=== PATIENT | male | born 1965 | race Caucasian/White ===

== ENCOUNTER 2018-08-22 09:11 | Emergency (ER) | payer SELFPAY ==
[2018-08-22] MEDS ORDERED: Ondansetron 4 MG/2 ML SDV IVPUSH ONE (09:50)
[2018-08-22] MEDS ORDERED: Labetalol 100 MG/20 ML MDV IVPUSH ONE (09:51)
[2018-08-22] MEDS ORDERED: Famotidine 20 MG/2 ML SDV IVPUSH ONE (10:13)
[2018-08-22] MEDS ORDERED: Promethazine 25 MG/ML SDV IM ONE (10:14)
--- NOTE | 2018-08-22 10:23 | EDM.PDOC ---
<Minh Case - Last Filed: 08/22/18 12:25> ED HPI GENERAL MEDICAL PROBLEM - General Chief Complaint: General Stated Complaint: VOMITING/HEADACHE Time Seen by Provider: 08/22/18 09:27 - Related Data Allergies Allergy/AdvReac Type Severity Reaction Status Date / Time No Known Allergies Allergy Verified 08/22/18 09:21 Home Meds: Home Meds Enalapril Maleate [Vasotec] 5 mg PO DAILY #30 tablet 08/22/18 [Rx] Levothyroxine 75 mcg PO DAILY 08/22/18 [History] NIFEdipine [Nifedipine ER] 60 mg PO DAILY 08/22/18 [History] Spironolactone 50 mg PO DAILY 08/22/18 [History] traZODone HCl [Trazodone HCl] 50 mg PO DAILY 08/22/18 [History] Course - Vital Signs Last Recorded V/S: Last Vital Signs Temp 98.3 F 08/22/18 09:17 Pulse 100 08/22/18 09:17 Resp 16 08/22/18 09:17 BP 154/85 H 08/22/18 12:29 Pulse Ox 99 08/22/18 09:17 - Orders/Labs/Meds Orders: Active Orders 24 hr Category Date Time Status EKG Documentation Completion [RC] STAT Care 08/22/18 09:48 Active Head wo Cont [CT] Stat Exams 08/22/18 09:49 Taken Sodium Chloride 0.9% [Normal Saline] 1,000 ml Med 08/22/18 10:45 Active IV ASDIRECTED Medication Orders Sodium Chloride (Normal Saline) 1,000 mls @ 999 mls/hr IV ASDIRECTED VIDAL Last Admin: 08/22/18 11:03 Dose: 999 mls/hr Labs: Laboratory Tests 08/22/18 08/22/18 Range/Units 09:20 09:20 WBC 15.05 H (4.23-9.07) K/mm3 RBC 6.68 H (4.63-6.08) M/mm3 Hgb 16.2 (13.7-17.5) gm/L Hct 48.5 (40.1-51.0) % MCV 72.6 L (79.0-92.2) fl MCH 24.3 L (25.7-32.2) pg MCHC 33.4 (32.2-35.5) g/dl RDW Std Deviation 46.7 H (35.1-43.9) fL Plt Count 415 H (163-337) K/mm3 MPV 8.6 L (9.4-12.3) fl Neut % (Auto) 65.0 (34.0-67.9) % Lymph % (Auto) 21.9 (21.8-53.1) % Maverick % (Auto) 9.6 (5.3-12.2) % Eos % (Auto) 3.0 (0.8-7.0) Baso % (Auto) 0.2 (0.1-1.2) % Neut # (Auto) 9.79 H (1.78-5.38) K/mm3 Lymph # (Auto) 3.30 (1.32-3.57) K/mm3 Maverick # (Auto) 1.44 H (0.30-0.82) K/mm3 Eos # (Auto) 0.45 (0.04-0.54) K/mm3 Baso # (Auto) 0.03 (0.01-0.08) K/mm3 Manual Slide Review Abnormal smear Sodium 135 L (136-145) mEq/L Potassium 4.3 (3.5-5.1) mEq/L Chloride 100 (98-107) mEq/L Carbon Dioxide 25 (21-32) mEq/L Anion Gap 14.3 (5-15) BUN 10 (7-18) mg/dL Creatinine 1.2 (0.7-1.3) mg/dL Est Cr Clr Drug Dosing 67.32 mL/min Estimated GFR (MDRD) > 60 (>60) mL/min BUN/Creatinine Ratio 8.3 L (14-18) Glucose 97 (74-106) mg/dL Calcium 8.9 (8.5-10.1) mg/dL Total Bilirubin 1.1 H (0.2-1.0) mg/dL AST 53 H (15-37) U/L ALT 53 (16-63) U/L Alkaline Phosphatase 94 (46-116) U/L Total Protein 7.1 (6.4-8.2) g/dl Albumin 3.1 L (3.4-5.0) g/dl Globulin 4.0 gm/dL Albumin/Globulin Ratio 0.8 L (1-2) Meds: Medications Generic Name Dose Route Start Last Admin Trade Name Vernell PRN Reason Stop Dose Admin Sodium Chloride 1,000 mls @ 999 mls/hr 08/22/18 10:45 08/22/18 11:03 Normal Saline IV 999 mls/hr ASDIRECTED VIDAL Administration Discontinued Medications Generic Name Dose Route Start Last Admin Trade Name Vernell PRN Reason Stop Dose Admin Diphenhydramine HCl 25 mg 08/22/18 10:41 08/22/18 11:13 Benadryl PO 08/22/18 10:42 25 mg ONETIME ONE Administration Enalapril Maleate 5 mg 08/22/18 11:31 08/22/18 12:29 Vasotec PO 08/22/18 11:32 5 mg ONETIME ONE Administration Famotidine 20 mg 08/22/18 10:13 08/22/18 11:03 Pepcid IVPUSH 08/22/18 10:14 20 mg ONETIME ONE Administration Ketorolac Tromethamine 30 mg 08/22/18 10:38 08/22/18 11:08 Toradol IVPUSH 08/22/18 10:39 30 mg ONETIME ONE Administration Labetalol HCl 20 mg 08/22/18 09:51 08/22/18 10:02 Normodyne IVPUSH 08/22/18 09:52 20 mg ONETIME ONE Administration Protocol Morphine Sulfate 4 mg 08/22/18 10:39 Morphine IVPUSH 08/22/18 10:40 ONETIME ONE Morphine Sulfate Confirm 08/22/18 10:52 08/22/18 11:01 Morphine Sulfate Administered 08/22/18 10:53 Not Given Dose 4 mg IV .STK-MED ONE Morphine Sulfate 4 mg 08/22/18 10:57 08/22/18 11:11 Morphine Sulfate IV 08/22/18 10:58 4 mg ONETIME ONE Administration Ondansetron HCl 4 mg 08/22/18 09:50 08/22/18 10:01 Zofran IVPUSH 08/22/18 09:51 4 mg ONETIME ONE Administration Promethazine HCl 25 mg 08/22/18 10:14 08/22/18 11:06 Phenergan IM 08/22/18 10:15 25 mg ONETIME ONE Administration - Re-Assessments/Exams Free Text/Narrative Re-Assessment/Exam: 08/22/18 12:25 History exam was done by JOYCE Greene. I have also visited with patient, have discussed sx and findings with Juan Alberto Membreno. I agree with hx and exam as documented. I agree with plan of treatment as documented. Departure - Departure Disposition: Home, Self-Care 01 Clinical Impression: Hypertension Qualifiers: Hypertension type: unspecified Qualified Code(s): I10 - Essential (primary) hypertension Headache Qualifiers: Headache type: unspecified Headache chronicity pattern: unspecified pattern Intractability: not intractable Qualified Code(s): R51 - Headache - Discharge Information Prescriptions: Enalapril Maleate [Vasotec] 5 mg PO DAILY #30 tablet Instructions: Coronary Artery Disease, Male, How to Take Your Blood Pressure, Hypertension, [id number], General Headache Without Cause, [id number] Referrals: Uma Kirby MD [Primary Care Provider] - Forms: ED Department Discharge Additional Instructions: You have been diagnosis with a headache and hypertension. Your CT of you head revealed no acute finding. Your B/P is not under control. I will add Vasotec 5 mg daily. You may take Tylenol for your headaches. Follow up with Dr Kirby for further evaluation and treatment of this. Return to the ER for any new or acute worsening symptoms. - My Orders Last 24 Hours: My Active Orders 08/22/18 09:48 EKG Documentation Completion [RC] STAT 08/22/18 09:49 Head wo Cont [CT] Stat 08/22/18 10:45 Sodium Chloride 0.9% [Normal Saline] 1,000 ml IV ASDIRECTED - Assessment/Plan Last 24 Hours: My Active Orders 08/22/18 09:48 EKG Documentation Completion [RC] STAT 08/22/18 09:49 Head wo Cont [CT] Stat 08/22/18 10:45 Sodium Chloride 0.9% [Normal Saline] 1,000 ml IV ASDIRECTED <Shellie Membreno - Last Filed: 08/22/18 12:47> ED HPI GENERAL MEDICAL PROBLEM - General Source of Information: Reports: Patient History Limitations: Reports: No Limitations - History of Present Illness INITIAL COMMENTS - FREE TEXT/NARRATIVE: 53 y/o male presents to ER with cc headache for the past 2 months. He states for the pat month his headache is worse. He is concerned because he has a family history of brain aneurysms. He reports he as hypertension and his current B/P is 200/119. He does take spironolactone and nifedipine at night. He reports that his blood pressure has not been under control. He also states that he has problems with vomiting after he eat or exercises. He also reports that he's noticed blood in his sperm. He denies any back pain dysuria shortness of breath or chest pain. He does admit to chewing tobacco. He is accompanied by his . His PCP is Dr. Kirby. Onset Date: 06/26/18 Onset Time: 09:00 Duration: Intermittent Location: Reports: Head Severity: Mild Improves with: Reports: None Worsens with: Reports: None Associated Symptoms: Reports: Headaches, Nausea/Vomiting. Denies: Fever/Chills , Rash, Shortness of Breath, Syncope, Weakness Headache Pain Score (Numeric/FACES): 5 Past Medical History Cardiovascular History: Reports: Hypertension Gastrointestinal History: Reports: Other (See Below) Other Gastrointestinal History: fatty liver Genitourinary History: Reports: BPH Endocrine/Metabolic History: Reports: Hypothyroidism - Past Surgical History GI Surgical History: Reports: Appendectomy, Hernia Repair/Other Social & Family History - Tobacco Use Smoking Status *Q: Never Smoker - Caffeine Use Caffeine Use: Reports: Coffee - Recreational Drug Use Recreational Drug Use: Yes Drug Use in Last 12 Months: Yes Recreational Drug Type: Reports: Mescaline Recreational Drug Use Frequency: Rarely ED ROS GENERAL - Review of Systems Review Of Systems: See Below Constitutional: Reports: No Symptoms. Denies: Fever, Chills HEENT: Reports: No Symptoms. Denies: Eye Pain, Vertigo Respiratory: Reports: No Symptoms Cardiovascular: Reports: No Symptoms. Denies: Chest Pain, Edema, Lightheadedness Endocrine: Reports: No Symptoms GI/Abdominal: Reports: No Symptoms : Reports: No Symptoms Musculoskeletal: Reports: No Symptoms Skin: Reports: No Symptoms Neurological: Reports: Headache. Denies: Seizure, Syncope, Tingling, Weakness Psychiatric: Reports: No Symptoms Hematologic/Lymphatic: Reports: No Symptoms Immunologic: Reports: No Symptoms ED EXAM, GENERAL - Physical Exam Exam: See Below Exam Limited By: No Limitations General Appearance: Alert, WD/WN, No Apparent Distress Eye Exam: Bilateral Eye: EOMI, PERRL Ears: Normal External Exam, Normal Canal, Hearing Grossly Normal, Normal TMs Nose: Normal Inspection, Normal Mucosa, No Blood Throat/Mouth: Normal Inspection, Normal Lips, Normal Teeth, Normal Gums, Normal Oropharynx, Normal Voice, No Airway Compromise Head: Atraumatic, Normocephalic Neck: Normal Inspection, Supple, Non-Tender, Full Range of Motion Respiratory/Chest: No Respiratory Distress, Lungs Clear, Normal Breath Sounds, No Accessory Muscle Use, Chest Non-Tender Cardiovascular: Normal Peripheral Pulses, Regular Rate, Rhythm, No Edema, No Gallop, No JVD, No Murmur, No Rub GI/Abdominal: Normal Bowel Sounds, Soft, Non-Tender, No Organomegaly, No Distention, No Abnormal Bruit, No Mass, Pelvis Stable Back Exam: Normal Inspection, Full Range of Motion Extremities: Normal Inspection, Normal Range of Motion, Non-Tender, No Pedal Edema, Normal Capillary Refill Neurological: Alert, Oriented, Normal Cognition, Normal Gait, Normal Reflexes, No Motor/Sensory Deficits Psychiatric: Normal Affect, Normal Mood Skin Exam: Warm, Dry, Intact, Normal Color, No Rash Lymphatic: No Adenopathy EKG INTERPRETATION Rhythm: NSR EKG Interpretation Comments: NSR rate 89, probable left atrial enlargement, probable left ventricular hypertrophy Nonspecific T abnormalities inferior leads. St elev, probable normal early repol pattern. Course - Re-Assessments/Exams Free Text/Narrative Re-Assessment/Exam: 08/22/18 12:13 WBC 15.05 I feel this is stress induced. RBC 6.68 H & h 16.2 48.5 plt 415. nA + 135 k+ 4.3 bun 10 CREATINE 1.2. His EKG revealed sinus rhythm. His head Ct revealed no acute intracranial hemorrhage. Opacity in the right maxillary sinus and ethmoid sinuses may represent mild sinusitis. He received Toradol, Morphine, Zofran, Pepcid, Phenergan, Vasotec and his condition improved. I will discharge home with Vasotec 5 mg daily. I instructed the patient on low fat, low sodium diet. I instructed patient to document his blood pressure frequently throughout the day and record it. Instructed patient to follow-up with his PCP for management and treatment of hypertension and headaches. Instructed patient returns to preserve for any new or acutely worsening symptoms. Patient verbalized understanding and is comfortable with plan for discharge. Patient is stable at time of discharge. Departure - Departure Time of Disposition: 12:17 Condition: Good - Discharge Information *PRESCRIPTION DRUG MONITORING PROGRAM REVIEWED*: Not Applicable *COPY OF PRESCRIPTION DRUG MONITORING REPORT IN PATIENT MICHELLE: Not Applicable
[2018-08-22] MEDS ORDERED: Ketorolac 30 MG/ML SDV IVPUSH ONE (10:38)
[2018-08-22] MEDS ORDERED: Morphine 4 MG/ML Syringe IVPUSH ONE (10:39)
[2018-08-22] MEDS ORDERED: diphenhydrAMINE 25 MG Cap PO ONE (10:41)
[2018-08-22] MEDS ORDERED: Sodium Chloride 0.9% 1,000 ML IV SCH (10:45)
[2018-08-22] MEDS ORDERED: Enalapril 5 MG Tab PO ONE (11:31)
[2018-08-22 12:56] VITALS: BP 152/75
--- NOTE | 2018-08-23 08:05 | CT ---
Head CT Technique: Multiple axial sections through the brain were obtained. Intravenous contrast was not utilized. Comparison: No prior intracranial imaging. Findings: Ventricles along with basal cisterns and sulci over the convexities are within normal limits for the patient's age. No abnormal parenchymal densities are seen. No evidence of intracranial hemorrhage. No midline shift or mass effect is being seen. Retention cyst is noted within the right maxillary sinus measuring 1.5 cm. Mild mucosal thickening is seen within portions of the ethmoid sinuses. No acute calvarial abnormality is seen. Impression: 1. Sinus findings which are most likely chronic. 2. No acute intracranial abnormality is appreciated. Diagnostic code #2 I agree with preliminary report from [facility], finalized on 08/22/18, 11:31 AM Central Time
== END 2018-08-22 12:57 | disposition home or self-care (01) ==
LOC: JD.ED 09:11
DX: I10 Essential (primary) hypertension (principal); E03.9 Hypothyroidism, unspecified; Z79.899 Other long term (current) drug therapy
CPT/HCPCS: 36415; 70450; 80053; 85025; 93005; 96361; 96372; 96374; 96375; 99284; A9270; J1885; J2270; J2405; J2550; J3490; J7040; 93010

== ENCOUNTER 2018-11-19 23:09 | Emergency (ER) | payer SELFPAY ==
[2018-11-19] MEDS ORDERED: HYDROmorphone 1 MG/ML Syringe IVPUSH ONE (23:45)
[2018-11-19] MEDS ORDERED: Sodium Chloride 0.9% 1,000 ML IV SCH (23:45)
[2018-11-19] MEDS ORDERED: Metoclopramide 10 MG/2 ML SDV IVPUSH ONE (23:45)
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
[2018-11-20] MEDS ORDERED: Levofloxacin/Dextrose 5%-Water 750 MG in Premix Bag 1 BAG IV ONE (00:53)
[2018-11-20] MEDS ORDERED: Sodium Chloride 0.9% 1,000 ML IV SCH (01:00)
[2018-11-20] MEDS ORDERED: HYDROmorphone 1 MG/ML Syringe IVPUSH ONE (01:15)
[2018-11-20] MEDS ORDERED: Dicyclomine 10 MG Cap PO ONE (02:33)
[2018-11-20] MEDS ORDERED: metroNIDAZOLE 500 MG Tab PO ONE (02:34)
[2018-11-20] MEDS ORDERED: Acetaminophen/oxyCODONE 325-5 MG Tab PO ONE (02:46)
--- NOTE | 2018-11-20 08:33 | CR ---
Abdomen: Supine view of the abdomen was obtained. Comparison: No prior abdominal x-ray. Calcifications are seen within the pelvis most likely due to phleboliths. Slight degenerative endplate spurring is scattered within the spine. Bowel gas pattern appears within normal limits. Impression: 1. Incidental findings. Nothing acute is appreciated on supine abdominal x-ray. Diagnostic code #1
--- NOTE | 2018-11-20 08:33 | CT ---
CT abdomen and pelvis Technique: Multiple axial sections were obtained from above the dome of the diaphragm inferiorly through the pubic symphysis. Intravenous and oral contrast has been given. Delayed images were also obtained through the bladder. Comparison: Prior right upper quadrant abdominal ultrasound of 11/11/14. Findings: Small portion of the visualized lung bases are clear. Liver contains no focal abnormality. Gallbladder contains no calcified gallstones. Spleen appears within normal limits. Small soft tissue nodule is noted off the anterior spleen compatible with accessory splenic tissue. Adrenal glands contain no nodule. Kidneys show no hydronephrosis or mass. Pancreas is within normal limits. Aorta shows no aneurysm. Appendix not visualized with certainty. Mild inflammatory change is seen within the mesenteric fat anterior to the ascending colon. No diverticuli are seen in this area. No pelvic mass or adenopathy is seen. Delayed images show contrast within the distal ureters and bladder. Bone window settings were reviewed which show some mild degenerative change scattered within the spine. Small limbus type vertebra are noted within the anterior and superior endplate of L3 which is felt to be incidental. Impression: 1. Mild inflammatory change within the mesenteric fat anterior to the descending colon. No diverticuli are seen in this area. Findings most likely represent change from epiploic appendagitis. 2. No other acute abnormality is seen on CT study of the abdomen and pelvis. Diagnostic code #3 I agree with preliminary report from [facility], finalized on 11/20/18, 4:24 AM Central Time
== END 2018-11-20 02:58 | disposition home or self-care (01) ==
LOC: JD.ED 23:09
DX: K57.32 Diverticulitis of large intestine without perforation or abscess without bleeding (principal); I10 Essential (primary) hypertension; E03.9 Hypothyroidism, unspecified; Z79.899 Other long term (current) drug therapy; F17.210 Nicotine dependence, cigarettes, uncomplicated; Z90.49 Acquired absence of other specified parts of digestive tract
CPT/HCPCS: 36415; 74018; 74177; 80053; 81001; 83540; 84466; 85007; 85027; 86140; 96365; 96366; 96375; 99284; A9270; J1170; J1956; J2765; J7040; 99285

== ENCOUNTER 2019-02-18 10:00 | Emergency (ER) | payer MEDICAID, OTHER ==
[2019-02-18 10:42] VITALS: BP 135/93; PULSE 99
[2019-02-18] MEDS ORDERED: Sodium Chloride 0.9% 10 ML Syringe FLUSH PRN (10:43)
[2019-02-18] MEDS ORDERED: HYDROmorphone 1 MG/ML Syringe IVPUSH ONE (10:45)
[2019-02-18] MEDS ORDERED: Ondansetron 4 MG/2 ML SDV IVPUSH ONE (10:45)
[2019-02-18] MEDS ORDERED: Sodium Chloride 0.9% 1,000 ML IV SCH (10:45)
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
--- NOTE | 2019-02-18 11:27 | CR ---
Abdomen: Supine and upright views of the abdomen were obtained. No free air is seen. Bowel gas pattern is normal. Calcifications are seen within the pelvis which most likely represent multiple phleboliths. Bony structures appear within normal limits for the patient's age. Impression: 1. Nothing acute is appreciated on two-view abdominal x-ray. Diagnostic code #2
[2019-02-18] MEDS ORDERED: Ketorolac 30 MG/ML SDV IVPUSH SCH ×2 (12:30→13:00)
[2019-02-18] MEDS ORDERED: Magnesium Citrate Solution 296 ML Bottle PO ONE (13:04)
== END 2019-02-18 13:20 | disposition home or self-care (01) ==
LOC: JD.ED 10:00
DX: K58.9 Irritable bowel syndrome, unspecified (principal); I10 Essential (primary) hypertension; N40.0 Benign prostatic hyperplasia without lower urinary tract symptoms; E03.9 Hypothyroidism, unspecified; Z79.890 Hormone replacement therapy; Z79.899 Other long term (current) drug therapy
CPT/HCPCS: 36415; 74019; 80053; 81001; 83690; 85025; 86140; 96361; 96374; 96375; 99284; A9270; J1170; J1885; J2405; J7040

== ENCOUNTER 2019-02-18 20:31 | Emergency (ER) | payer MEDICAID ==
[2019-02-18 20:50] VITALS: BP 159/102; PULSE 71
== END 2019-02-18 22:45 | disposition left against medical advice (07) ==
LOC: JD.ED 20:31
DX: Z53.21 Procedure and treatment not carried out due to patient leaving prior to being seen by health care provider (principal)

== ENCOUNTER 2019-02-19 10:11 | Emergency (ER) | payer MEDICAID ==
[2019-02-19 10:38] VITALS: BP 136/78; PULSE 92
[2019-02-19] MEDS ORDERED: Ketorolac 60 MG/2 ML SDV IM ONE (11:36)
[2019-02-19] MEDS ORDERED: Acetaminophen/HYDROcodone 325-5 MG Tab PO ONE (11:37)
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
--- NOTE | 2019-02-19 12:24 | CR ---
Chest: Portable view of the chest was obtained. Comparison: No prior chest x-ray, previous chest CT of 08/04/15. Heart size and mediastinum are within normal limits. Lungs are clear. Bony structures are grossly intact. Impression: 1. Nothing acute is seen on portable chest x-ray. Diagnostic code #1
== END 2019-02-19 12:49 | disposition home or self-care (01) ==
LOC: JD.ED 10:11
DX: R07.89 Other chest pain (principal); I10 Essential (primary) hypertension; N40.0 Benign prostatic hyperplasia without lower urinary tract symptoms; E03.9 Hypothyroidism, unspecified; Z79.899 Other long term (current) drug therapy; Z79.890 Hormone replacement therapy
CPT/HCPCS: 36415; 71045; 85379; 93005; 96372; 99285; A9270; J1885